=== PATIENT | female | born 1955 ===

== ENCOUNTER 2018-03-17 09:42 | Emergency (ER) | payer OTHER ==
[~2018-03-17] VITALS: Ht 162.6 cm; Wt 72.6 kg
[2018-03-17] MEDS ORDERED: WELLBUTRIN SR150 MG (10:06)
[2018-03-17] MEDS ORDERED: ZOCOR40 MG (10:06)
== END 2018-03-17 13:39 | disposition home or self-care (01) ==
LOC: ER 09:42
DX: S52.591A Other fractures of lower end of right radius, initial encounter for closed fracture (principal); W01.198A Fall on same level from slipping, tripping and stumbling with subsequent striking against other object, initial encounter; Y93.89 Activity, other specified; Y92.89 Other specified places as the place of occurrence of the external cause; Y99.8 Other external cause status